=== PATIENT | female | born 1980 | race Caucasian/White ===

== ENCOUNTER 2018-08-13 15:44 | Outpatient (REF) | payer BC, SELFPAY | END 2018-08-13 16:04 | LOC: NCHCN 15:44 | PROVIDERS: PCP Family Medicine; Visit Provider Family Medicine | DX: I10 Essential (primary) hypertension | CPT/HCPCS: 80048; 84443 ==

== ENCOUNTER 2019-01-28 15:28 | Outpatient (REF) | payer BC, SELFPAY ==
[2019-01-28 21:34] LABS: Anion Gap 9.1 mmol/L (3-11); BUN 11 mg/dL (7-18); CO2 26.9 mmol/L (21.0-32.0); CREATININE 0.69 mg/dL (0.55-1.02); Calcium 8.9 mg/dL (8.5-10.1); Chloride 104 mmol/L (98-107); Glucose 87 mg/dL (70-100); Sodium 140 mmol/L (136-145)
== END 2019-01-28 15:48 ==
LOC: NCHCN 15:28
PROVIDERS: PCP Family Medicine; Visit Provider Family Medicine
DX: I10 Essential (primary) hypertension (principal)
CPT/HCPCS: 80048

== ENCOUNTER 2020-07-13 14:58 | Outpatient (REF) | payer BC, SELFPAY ==
[2020-07-13 22:01] LABS: ALT 37 U/L (14-59); AST 22 U/L (15-37); Albumin 4.3 g/dL (3.4-5.0); Alkaline Phosphatase 71 U/L (46-116); Anion Gap 11.5 mmol/L (3-11); BUN 9 mg/dL (7-18); Bilirubin, Total 0.5 mg/dL (0.2-1.0); CO2 26.5 mmol/L (21.0-32.0); CREATININE 0.78 mg/dL (0.55-1.02); Calcium 9.2 mg/dL (8.5-10.1); Calculated LDL 106 mg/dL (<100); Chloride 102 mmol/L (98-107); Cholesterol 210 mg/dL (<200); Glucose 103 mg/dL (74-106); HDL Cholesterol 93 mg/dL (40-60); Sodium 140 mmol/L (136-145); Triglyceride 59 mg/dL (<150)
[2020-07-13 22:02] LABS: Hemoglobin A1C 5.2 % (<5.7)
== END 2020-07-13 15:18 ==
LOC: NCHCN 14:58
PROVIDERS: PCP Family Medicine; Visit Provider Family Medicine
DX: Z00.00 Encounter for general adult medical examination without abnormal findings (principal); I10 Essential (primary) hypertension
CPT/HCPCS: 80053; 80061; 83036

== ENCOUNTER 2021-07-17 16:16 | Outpatient (REF) | payer BC, SELFPAY ==
[2021-07-17 21:34] LABS: Hemoglobin A1C 5.2 % (<5.7)
[2021-07-17 21:41] LABS: ALT 32 U/L (14-59); AST 28 U/L (15-37); Alkaline Phosphatase 82 U/L (46-116); Anion Gap 11.4 mmol/L (3-11); BUN 7 mg/dL (7-18); Bilirubin, Total 0.2 mg/dL (0.2-1.0); CO2 24.6 mmol/L (21.0-32.0); CREATININE 0.7 mg/dL (0.55-1.02); Calcium 9.5 mg/dL (8.5-10.1); Chloride 104 mmol/L (98-107); Glucose 92 mg/dL (74-106); Potassium 4.4 mmol/L (3.5-5.1); Sodium 140 mmol/L (136-145); Total Protein 7.8 g/dL (6.4-8.2)
[2021-07-19 13:40] LABS: Calculated LDL 172 mg/dL (<100); Cholesterol 263 mg/dL (<200); HDL Cholesterol 60 mg/dL (40-60); Triglyceride 155 mg/dL (<150)
== END 2021-07-17 16:17 | disposition home or self-care (01) ==
LOC: NCHCN 16:16
PROVIDERS: PCP Family Medicine; Visit Provider Family Medicine
DX: I10 Essential (primary) hypertension (principal); Z13.220 Encounter for screening for lipoid disorders; Z13.1 Encounter for screening for diabetes mellitus
CPT/HCPCS: 80053; 80061; 83036

== ENCOUNTER 2021-10-11 14:14 | Outpatient (REF) | payer BC, SELFPAY ==
--- NOTE | 2021-10-11 13:20 | PAPFT_PTH ---
PATIENT: Mary Chandler LOC: [facility] U#:[id number] AGE/SX: 41/F ROOM: RE10/11/[address]: Beth Francis : 1980 BED: DIS: 10/11/2021 SPEC #: [id number] RECD: 10/14/21 12:51 STATUS: MEGAN REChristiano #: [id number] AMOS: 10/11/21 13:[address]: Beth Francis DEPT: [facility] Cytology RECD BY: Narda Leyva Tissues: 1 - CX/ENDOCX FOR PAP SMEARS Procedures: PAP THIN PREP/[facility] Screening HPV DNA PROBE Comments: [id number]
== END 2021-10-11 14:15 | disposition home or self-care (01) ==
LOC: NCHCN 14:14
PROVIDERS: PCP Family Medicine; Visit Provider Family Medicine
DX: Z00.00 Encounter for general adult medical examination without abnormal findings (principal); Z12.4 Encounter for screening for malignant neoplasm of cervix; Z11.51 Encounter for screening for human papillomavirus (HPV)
CPT/HCPCS: 88142; 87624

== ENCOUNTER 2022-05-28 16:53 | Outpatient (REF) | payer BC, SELFPAY ==
[2022-05-28 21:21] LABS: Anion Gap 8.8 mmol/L (3-11); BUN 14 mg/dL (7-18); CO2 28.2 mmol/L (21.0-32.0); CREATININE 0.8 mg/dL (0.55-1.02); Calcium 9.2 mg/dL (8.5-10.1); Calculated LDL 141 mg/dL (<100); Chloride 100 mmol/L (98-107); Cholesterol 217 mg/dL (<200); Estimated GFR 95.46 (mL/min/1.73m2); Glucose 117 mg/dL (74-106); HDL Cholesterol 58 mg/dL (40-60); Potassium 3.6 mmol/L (3.5-5.1); Sodium 137 mmol/L (136-145); Triglyceride 92 mg/dL (<150)
== END 2022-05-28 16:54 | disposition home or self-care (01) ==
LOC: NCHCN 16:53
PROVIDERS: PCP Family Medicine; Visit Provider Family Medicine
DX: I10 Essential (primary) hypertension (principal); Z13.220 Encounter for screening for lipoid disorders
CPT/HCPCS: 80048; 80061